=== PATIENT | female | born 1980 | race Caucasian/White ===

== ENCOUNTER 2017-04-01 11:21 | Inpatient (IN) | payer OTHER ==
[2017-04-01] MEDS ORDERED: MORPHINE SULFATE INJ 2 MG INJ IVP PRN (13:59)
[2017-04-01] MEDS ORDERED: PEPCID 20 MG IV PREMIX* 20 MG/50 ML BAG IV PRN (13:59)
[2017-04-01] MEDS ORDERED: NS 1000 ML 1,000 ML IV SCH (14:00)
[2017-04-01 14:53] LABS: BASOPHILS % (AUTO) 0.6 % (0.2-1.0); EOSINOPHILS # (AUTO) 0.1 x10^3/uL (0.0-0.2); EOSINOPHILS % (AUTO) 1.4 % (0.9-2.9); HEMATOCRIT 36.8 % (36.0-47.0); HEMOGLOBIN 12.6 g/dL (12.0-16.0); LYMPHOCYTES # (AUTO) 1.6 X10^3/uL (1.3-2.9); LYMPHOCYTES % (AUTO) 37.8 % (21.0-51.0); MEAN CORPUSCULAR HEMOGLOBIN 28.4 pg (27.0-34.0); MEAN CORPUSCULAR HGB CONC 34.2 g/dL (33.0-35.0); MEAN PLATELET VOLUME 7.9 fL (7.4-11.0); MONOCYTES # (AUTO) 0.4 x10^3/uL (0.3-0.8); MONOCYTES % (AUTO) 9.4 % (0.0-13.0); NEUTROPHILS # (AUTO) 2.2 x10^3/uL (2.2-4.8); NEUTROPHILS % (AUTO) 50.8 % (42.0-75.0); PLATELET COUNT 218 X10^3/uL (150.0-450.0); RED BLOOD COUNT 4.43 X10^6/uL (3.5-5.4); RED CELL DISTRIBUTION WIDTH 14.8 % (11.6-16.5); WHITE BLOOD COUNT 4.3 X10^3/uL (3.6-10.0)
[2017-04-01 15:07] LABS: ALANINE AMINOTRANSFERASE 17 Units/L (12-78); ALBUMIN 2.8 g/dL (3.4-5.0); ALKALINE PHOSPHATASE 83 Units/L (46-116); ASPARTATE AMINO TRANSFERASE 18 Units/L (15-37); BLOOD UREA NITROGEN 7 mg/dL (7-18); CALCIUM 8.5 mg/dL (8.5-10.1); CARBON DIOXIDE 21.3 mmol/L (21-32); CHLORIDE 105 mmol/L (98-107); COR CA(FOR HYPOALB) 9.5 mg/dL (8.5-10.1); COR NA(FOR HYPERGLY) 141 mmol/L (136-145); CREATININE 0.51 mg/dL (0.55-1.02); SODIUM 140 mmol/L (136-145); TOTAL PROTEIN 6.9 g/dL (6.4-8.2); eGFR BLACK RACES > 60 (>60); eGFR NON BLACK RACES > 60 (>60)
[2017-04-01 15:50] VITALS: BMI 29.8
[2017-04-01] MEDS: NS + KCL 40 MEQ/L 1,000 ML IV SCH (15:50)
--- NOTE | 2017-04-01 16:49 | RAD ---
Examination: Abdomen with PA chest History: Abdominal pain nausea and vomiting PA chest: Normal heart size with clear lungs. No pleural fluid or pneumoperitoneum. Abdomen: Supine and erect views demonstrate moderate gaseous distention of segments of jejunum and co viral. Differential air-fluid levels are observed. There is no evidence for mass or pathologic calcific ation. Jejunal distention measures as much as 4.6 cm in diameter. Impression: Although the findings may represent a reflex ileus, the significant small bowel distentio n is concerning for early or partial small bowel obstruction. Correlate clinically with follow-up lora ging. Reported By:
[2017-04-01 17:29] LABS: BILIRUBIN,URINE NEGATIVE (NEGATIVE); BLOOD/HEMOGLOBIN,URINE 1+ (NEGATIVE); GLUCOSE, URINE NEGATIVE (NEGATIVE); KETONES,URINE 2+ (NEGATIVE); LEUKOCYTE ESTERASE ,URINE 1+ (NEGATIVE); NITRITES,URINE NEGATIVE (NEGATIVE); PH,URINE 6.5 (5.0 - 8.0); PROTEIN,URINE 1+ (NEGATIVE); UROBILINOGEN,URINE NORMAL (NORMAL)
[2017-04-01 17:39] LABS: APPEARANCE,URINE HAZY (CLEAR); BACTERIA,URINE TRACE /HPF (NEGATIVE); COLOR,URINE YELLOW (YELLOW); SQUAMOUS EPITHELIAL CELL,UR RARE /HPF (NEGATIVE)
[2017-04-01] MEDS: TYLENOL 325 MG TAB PO PRN (20:16)
--- NOTE | 2017-04-01 21:17 | DR.H&P ---
H&P - History & Physical for Day of: H&P Date: 04/01/17 - Chief Complaint Chief Complaint: ABd pain with nausea/vomiting, diarrhea. Weakness and feeling like going to pass out. - Allergies Allergies/Adverse Reactions: Allergies Allergy/AdvReac Type Severity Reaction Status Date / Time No Known Drug Allergies Allergy Verified 04/01/17 13:59 [NKDA] - History of Present Illness History of Present Illness: The patient is a 37yo WF who presented to [facility] with complaint of N/V/D since . States she feels week and like she is going to pass out if stands suddenly. states he has had to catch her 3 times. Did present to [facility] and was told she was dehydrated. States they gave her 4 liters of fluid and nausea med IV and was discharged home. States she has been taking Zofran but unable to keep anything down including meds. States she has not been able to take her heart meds as well. - Past Medical History Past Medical History: Diabetes, Migraines, Hypertension Additional Medical History: Tachycardia, Low back pain - Past Surgical History Surgical History: Appendectomy, Cholecystectomy, Hysterectomy, Other - Family History Family Medical History: Diabetes Mellitus, Cancer, Coronary Artery Disease, Heart Failure, Hypertension - Social History Does patient currently use any type of tobacco product: No Have you used tobacco products in the last 12 months: No Type of Tobacco Use: None Does any household member use tobacco: Yes Alcohol Use: None Drug Use: None - Medications Home Medications: Cyclobenzaprine HCl 0.5 - 1 tab PO TID PRN 04/01/17 [History Confirmed 04/01/17] Duloxetine HCl [CYMBALTA 60 MG *] 1 cap PO DAILY 04/01/17 [History Confirmed ] Estradiol [Estrace] 2 mg PO DAILY 04/01/17 [History Confirmed 04/01/17] Gabapentin 800 mg PO TID PRN 04/01/17 [History Confirmed 04/01/17] Glimepiride 2 tabs PO BID 04/01/17 [History Confirmed 04/01/17] Insulin Lispro [Humalog Lopez Kwikpen] 1 unit SC .PERPROTOCOL 04/01/17 [ History Confirmed 04/01/17] Lisinopril 20 mg PO DAILY 04/01/17 [History Confirmed 04/01/17] Loratadine [Claritin] 10 mg PO DAILY 04/01/17 [History Confirmed 04/01/17] Metformin HCl 1.5 tabs PO BID 04/01/17 [History Confirmed 04/01/17] Metoprolol Tartrate 25 mg PO BID 04/01/17 [History Confirmed 04/01/17] Misc Home Med [Patient's Home Medication] 1 spray ENOSTRIL Q6H PRN 04/01/17 [ History Confirmed 04/01/17] Misc Home Med [Patient's Home Medication] 50 units SC HS 04/01/17 [History Confirmed 04/01/17] Misc Home Med [Patient's Home Medication] 80 units SC DAILY 04/01/17 [History Confirmed 04/01/17] Nortriptyline HCl 25 mg PO HS 04/01/17 [History Confirmed 04/01/17] Ondansetron HCl 4 mg PO Q4H PRN 04/01/17 [History Confirmed 04/01/17] Pioglitazone HCl [ACTOS 45 MG *] 45 mg PO DAILY 04/01/17 [History Confirmed ] Ropinirole HCl [REQUIP 1 MG *] 1 tab PO HS 04/01/17 [History Confirmed 04/01/17] Topiramate [Topamax] 50 mg PO BID 04/01/17 [History Confirmed 04/01/17] - Review of Systems Constitutional: See HPI, Weakness, Malaise Eyes: No Symptoms Reported ENT: Nose Congestion, Throat Pain Respiratory: No Symptoms Reported Cardiovascular: Palpitations, Light Headedness Gastrointestinal: Nausea, Vomiting, Abdominal Pain, Diarrhea Genitourinary: No Symptoms Reported Musculoskeletal: No Symptoms Reported Skin: No Symptoms Reported Neurological: No Symptoms Reported - Physical Exam Vital Signs: Temperature 98.5 F Pulse Rate [Right Brachial] 97 Respiratory Rate 16 Blood Pressure [Right Arm] 118/77 O2 Sat by Pulse Oximetry 97 Oriented: Normal Eyes: Normal Ear: Normal Nose: Normal Throat: Red Respiratory: Clear Throughout Cardiovascular: Tachycardia : Normal Auscultation: Bowel Sounds: Normal Palpation: Normal Tenderness: Epigastric Skin: Normal Musculoskeletal: Back:Lumbar, Tender Psychiatric: Normal Mood Description: Calm Affect: Normal Speech Pattern: Clear - Assessment/Plan (1) Ileus Status: Acute Plan: NPO (2) Nausea & vomiting Qualifiers: Vomiting Intractability: intractable Status: Acute Plan: IV Phenergan, Zofran (3) Diarrhea Status: Acute Plan: Stool culture (4) Diabetes mellitus Qualifiers: Diabetes mellitus type: type 2 Diabetes mellitus complication status: without complication Status: Acute Plan: Monitor BS (5) Tachycardia Status: Acute Plan: Monitor VS (6) Near syncope Status: Acute Plan: CBC, CMP, IV Hydration
[2017-04-01] MEDS ORDERED: FLEXERIL TAB 10 MG PO PRN (21:24)
[2017-04-01] MEDS: LOPRESSOR TAB 25 MG PO SCH (22:26)
[2017-04-02] MEDS: NS + KCL 40 MEQ/L 1,000 ML IV SCH ×2 (04:20→19:19)
[2017-04-02 06:36] LABS: ALANINE AMINOTRANSFERASE 16 Units/L (12-78); ALBUMIN 2.5 g/dL (3.4-5.0); ALKALINE PHOSPHATASE 75 Units/L (46-116); ASPARTATE AMINO TRANSFERASE 16 Units/L (15-37); BLOOD UREA NITROGEN 6 mg/dL (7-18); CALCIUM 7.7 mg/dL (8.5-10.1); CARBON DIOXIDE 19.9 mmol/L (21-32); CHLORIDE 107 mmol/L (98-107); COR CA(FOR HYPOALB) 8.9 mg/dL (8.5-10.1); COR NA(FOR HYPERGLY) 140 mmol/L (136-145); CREATININE 0.51 mg/dL (0.55-1.02); SODIUM 139 mmol/L (136-145); TOTAL PROTEIN 6.2 g/dL (6.4-8.2); eGFR BLACK RACES > 60 (>60); eGFR NON BLACK RACES > 60 (>60)
[2017-04-02 06:38] LABS: BASOPHILS % (AUTO) 0.5 % (0.2-1.0); EOSINOPHILS # (AUTO) 0.1 x10^3/uL (0.0-0.2); EOSINOPHILS % (AUTO) 1.6 % (0.9-2.9); HEMATOCRIT 34.6 % (36.0-47.0); LYMPHOCYTES # (AUTO) 1.4 X10^3/uL (1.3-2.9); MEAN CORPUSCULAR HEMOGLOBIN 28.8 pg (27.0-34.0); MEAN CORPUSCULAR HGB CONC 34.5 g/dL (33.0-35.0); MEAN CORPUSCULAR VOLUME 83.3 fL (80.0-100.0); MEAN PLATELET VOLUME 7.8 fL (7.4-11.0); MONOCYTES # (AUTO) 0.4 x10^3/uL (0.3-0.8); MONOCYTES % (AUTO) 10.6 % (0.0-13.0); NEUTROPHILS # (AUTO) 1.9 x10^3/uL (2.2-4.8); NEUTROPHILS % (AUTO) 51.3 % (42.0-75.0); PLATELET COUNT 195 X10^3/uL (150.0-450.0); RED BLOOD COUNT 4.16 X10^6/uL (3.5-5.4); RED CELL DISTRIBUTION WIDTH 14.6 % (11.6-16.5); WHITE BLOOD COUNT 3.8 X10^3/uL (3.6-10.0)
[2017-04-02] MEDS ORDERED: PATIENT'S HOME MEDICATION (Estradiol [Estrace] 2 MG) PO SCH (09:00)
[2017-04-02] MEDS: ESTRACE PO SCH (09:27)
[2017-04-02] MEDS: CYMBALTA PO SCH (09:27)
[2017-04-02] MEDS: LOPRESSOR TAB 25 MG PO SCH ×2 (09:27→21:06)
[2017-04-02] MEDS ORDERED: ZITHROMAX INJ 500 MG VIAL 500 MG in NS 250 ML IV 250 ML IV NR (11:27)
[2017-04-02] MEDS: PEPCID 20 MG IV PREMIX* 20 MG/50 ML BAG IV SCH ×2 (12:02→21:12)
[2017-04-02] MEDS: ZOFRAN INJ 4 MG VIAL IVP PRN (12:10)
--- NOTE | 2017-04-02 13:52 | CT ---
CT OF THE ABDOMEN AND PELVIS WITHOUT CONTRAST HISTORY: Small-bowel obstruction Comparison: Plain film 1 day prior Technique: Multiple axial images of the abdomen and pelvis were obtained from the lung bases to the p ubic symphysis without the administration of IV contrast. Oral contrast was administered. Dose reduc tion techniques including Automated Exposure Control (AEC) and adjustment of mA and kV were utlized. Findings: The heart is normal in size. There is no pericardial effusion. Lung bases are clear without focal con solidation, pleural effusion or pneumothorax. The sensitivity for focal lesion detection within the solid abdominal viscera is diminished without t he use of IV contrast. Liver and spleen are normal in size, and contour. Hepatic steatosis without focal lesion. No ductal d ilitation. Gallbladder absent. The pancreas is unremarkable. Adrenal glands are normal. Kidneys are n ormal in contour without hydronephrosis or nephrolithiasis. No bowel obstruction. Oral contrast is seen within the colon. Multiple surgical changes in the region of terminal ileum and ileocecal valve. Correlate with surgical history and possible appendectomy. Th ere is some mild thickening and inflammation in the region of the terminal ileum and cecum with shott y right lower quadrant and mesenteric lymph nodes. No free fluid or fluid collections. The bladder is normal in appearance. Uterus and ovaries not well seen. No free fluid or abnormal pelv ic lymph nodes. No aggressive osseous lesions. IMPRESSION: 1. No bowel obstruction. 2. Inflammatory changes involving the cecum and terminal ileum. Correlate with symptoms. Findings may represent inflammatory bowel disease. Adjacent surgical changes are nonspecific and may represent ap pendectomy. Correlate with patient's surgical history. 3. Hepatic steatosis. Reported By:
[2017-04-02 17:00] LABS: CRYPTOSPORIDIUM PARVUM ANTIGEN NEGATIVE (NEGATIVE); GIARDIA LAMBLIA ANTIGEN NEGATIVE (NEGATIVE); STOOL FOR WBC POSITIVE (NEGATIVE)
[2017-04-02] MEDS: PHENERGAN INJ 25 MG IVP PRN (19:26)
[2017-04-02] MEDS: REQUIP PO SCH (21:06)
[2017-04-03 04:46] LABS: BASOPHILS % (AUTO) 0.7 % (0.2-1.0); EOSINOPHILS # (AUTO) 0.1 x10^3/uL (0.0-0.2); EOSINOPHILS % (AUTO) 1.6 % (0.9-2.9); HEMATOCRIT 33.8 % (36.0-47.0); HEMOGLOBIN 11.7 g/dL (12.0-16.0); LYMPHOCYTES # (AUTO) 1.4 X10^3/uL (1.3-2.9); LYMPHOCYTES % (AUTO) 37.1 % (21.0-51.0); MEAN CORPUSCULAR HEMOGLOBIN 28.6 pg (27.0-34.0); MEAN CORPUSCULAR HGB CONC 34.6 g/dL (33.0-35.0); MEAN CORPUSCULAR VOLUME 82.7 fL (80.0-100.0); MEAN PLATELET VOLUME 7.6 fL (7.4-11.0); MONOCYTES # (AUTO) 0.4 x10^3/uL (0.3-0.8); NEUTROPHILS % (AUTO) 50.6 % (42.0-75.0); PLATELET COUNT 200 X10^3/uL (150.0-450.0); RED BLOOD COUNT 4.08 X10^6/uL (3.5-5.4); RED CELL DISTRIBUTION WIDTH 14.8 % (11.6-16.5); WHITE BLOOD COUNT 3.9 X10^3/uL (3.6-10.0)
[2017-04-03 05:04] LABS: ALANINE AMINOTRANSFERASE 15 Units/L (12-78); ALBUMIN 2.6 g/dL (3.4-5.0); ALKALINE PHOSPHATASE 78 Units/L (46-116); ASPARTATE AMINO TRANSFERASE 14 Units/L (15-37); BLOOD UREA NITROGEN 5 mg/dL (7-18); CALCIUM 7.8 mg/dL (8.5-10.1); CARBON DIOXIDE 19.6 mmol/L (21-32); CHLORIDE 107 mmol/L (98-107); COR CA(FOR HYPOALB) 8.9 mg/dL (8.5-10.1); COR NA(FOR HYPERGLY) 140 mmol/L (136-145); CREATININE 0.42 mg/dL (0.55-1.02); SODIUM 138 mmol/L (136-145); TOTAL PROTEIN 6.3 g/dL (6.4-8.2); eGFR BLACK RACES > 60 (>60); eGFR NON BLACK RACES > 60 (>60)
[2017-04-03] MEDS: HumuLIN R SUBCUT PRN ×4 (06:04→21:14)
[2017-04-03] MEDS: NS + KCL 40 MEQ/L 1,000 ML IV SCH ×2 (07:00→21:15)
[2017-04-03] MEDS ORDERED: ZITHROMAX INJ 500 MG VIAL 250 MG in NS 250 ML IV 250 ML IV SCH (09:00)
[2017-04-03] MEDS ORDERED: ZITHROMAX (ADDVANTAGE) 500 MG/250 ML IV.SOLN. IV SCH (09:00)
[2017-04-03] MEDS: PEPCID 20 MG IV PREMIX* 20 MG/50 ML BAG IV SCH ×2 (09:46→21:15)
[2017-04-03] MEDS: LOPRESSOR TAB 25 MG PO SCH ×2 (09:46→21:15)
[2017-04-03] MEDS: ESTRACE PO SCH (09:47)
[2017-04-03] MEDS: CYMBALTA PO SCH (09:50)
[2017-04-03] MEDS: SNACK - Diabetic Appropriate PO SCH ×2 (09:52→21:18)
[2017-04-03] MEDS: FLAGYL IV PREMIX 500 MG BAG 500 MG/100 ML BAG IV SCH ×2 (16:56→21:15)
[2017-04-03] MEDS: TYLENOL 325 MG TAB PO PRN (17:05)
[2017-04-03] MEDS: CIPRO IV 400 MG PREMIX* 400 MG/200 ML IV.SOLN. IV SCH ×2 (18:45→21:55)
[2017-04-03] MEDS: REQUIP PO SCH (21:15)
[2017-04-03] MEDS: PHENERGAN INJ 25 MG IVP PRN (22:25)
[2017-04-04] MEDS: FLAGYL IV PREMIX 500 MG BAG 500 MG/100 ML BAG IV SCH (02:23)
[2017-04-04] MEDS: HumuLIN R SUBCUT PRN ×3 (05:37→21:30)
[2017-04-04 06:04] LABS: ALANINE AMINOTRANSFERASE 17 Units/L (12-78); ALBUMIN 2.6 g/dL (3.4-5.0); ALKALINE PHOSPHATASE 77 Units/L (46-116); ASPARTATE AMINO TRANSFERASE 14 Units/L (15-37); BLOOD UREA NITROGEN 5 mg/dL (7-18); CALCIUM 8.2 mg/dL (8.5-10.1); CARBON DIOXIDE 20.8 mmol/L (21-32); CHLORIDE 109 mmol/L (98-107); COR CA(FOR HYPOALB) 9.3 mg/dL (8.5-10.1); COR NA(FOR HYPERGLY) 143 mmol/L (136-145); CREATININE 0.42 mg/dL (0.55-1.02); SODIUM 140 mmol/L (136-145); TOTAL PROTEIN 6.1 g/dL (6.4-8.2); eGFR BLACK RACES > 60 (>60); eGFR NON BLACK RACES > 60 (>60)
[2017-04-04 06:13] LABS: BASOPHILS % (AUTO) 0.7 % (0.2-1.0); EOSINOPHILS # (AUTO) 0.1 x10^3/uL (0.0-0.2); EOSINOPHILS % (AUTO) 1.7 % (0.9-2.9); HEMATOCRIT 34.2 % (36.0-47.0); HEMOGLOBIN 11.9 g/dL (12.0-16.0); LYMPHOCYTES # (AUTO) 1.6 X10^3/uL (1.3-2.9); LYMPHOCYTES % (AUTO) 40.6 % (21.0-51.0); MEAN CORPUSCULAR HEMOGLOBIN 28.6 pg (27.0-34.0); MEAN CORPUSCULAR HGB CONC 34.7 g/dL (33.0-35.0); MEAN CORPUSCULAR VOLUME 82.4 fL (80.0-100.0); MEAN PLATELET VOLUME 7.8 fL (7.4-11.0); MONOCYTES # (AUTO) 0.3 x10^3/uL (0.3-0.8); MONOCYTES % (AUTO) 8.7 % (0.0-13.0); NEUTROPHILS # (AUTO) 1.9 x10^3/uL (2.2-4.8); NEUTROPHILS % (AUTO) 48.3 % (42.0-75.0); PLATELET COUNT 214 X10^3/uL (150.0-450.0); RED BLOOD COUNT 4.15 X10^6/uL (3.5-5.4); RED CELL DISTRIBUTION WIDTH 14.9 % (11.6-16.5); WHITE BLOOD COUNT 3.8 X10^3/uL (3.6-10.0)
[2017-04-04] MEDS: PEPCID 20 MG IV PREMIX* 20 MG/50 ML BAG IV SCH ×2 (09:38→21:29)
[2017-04-04] MEDS: ESTRACE PO SCH (09:38)
[2017-04-04] MEDS: LOPRESSOR TAB 25 MG PO SCH ×2 (09:38→21:29)
[2017-04-04] MEDS: ZOFRAN INJ 4 MG VIAL IVP PRN (09:39)
[2017-04-04] MEDS: CYMBALTA PO SCH (09:48)
[2017-04-04] MEDS: CIPRO IV 400 MG PREMIX* 400 MG/200 ML IV.SOLN. IV SCH ×2 (16:03→21:29)
[2017-04-04] MEDS: NS + KCL 40 MEQ/L 1,000 ML IV SCH ×2 (16:05→21:35)
[2017-04-04] MEDS: REQUIP PO SCH (21:29)
[2017-04-04] MEDS: SNACK - Diabetic Appropriate PO SCH (21:29)
[2017-04-04] MEDS: PHENERGAN INJ 25 MG IVP PRN (23:03)
[2017-04-05 05:26] LABS: ALANINE AMINOTRANSFERASE 15 Units/L (12-78); ALBUMIN 2.7 g/dL (3.4-5.0); ALKALINE PHOSPHATASE 75 Units/L (46-116); ASPARTATE AMINO TRANSFERASE 13 Units/L (15-37); BLOOD UREA NITROGEN 3 mg/dL (7-18); CARBON DIOXIDE 22.9 mmol/L (21-32); CHLORIDE 108 mmol/L (98-107); COR NA(FOR HYPERGLY) 144 mmol/L (136-145); CREATININE 0.45 mg/dL (0.55-1.02); SODIUM 142 mmol/L (136-145); TOTAL PROTEIN 6.1 g/dL (6.4-8.2); eGFR BLACK RACES > 60 (>60); eGFR NON BLACK RACES > 60 (>60)
[2017-04-05 05:36] LABS: BASOPHILS % (AUTO) 0.7 % (0.2-1.0); EOSINOPHILS # (AUTO) 0.1 x10^3/uL (0.0-0.2); EOSINOPHILS % (AUTO) 2.1 % (0.9-2.9); HEMATOCRIT 33.8 % (36.0-47.0); HEMOGLOBIN 11.9 g/dL (12.0-16.0); LYMPHOCYTES # (AUTO) 1.8 X10^3/uL (1.3-2.9); LYMPHOCYTES % (AUTO) 43.6 % (21.0-51.0); MEAN CORPUSCULAR HEMOGLOBIN 28.9 pg (27.0-34.0); MEAN CORPUSCULAR HGB CONC 35.2 g/dL (33.0-35.0); MEAN CORPUSCULAR VOLUME 82.3 fL (80.0-100.0); MEAN PLATELET VOLUME 7.8 fL (7.4-11.0); MONOCYTES # (AUTO) 0.3 x10^3/uL (0.3-0.8); MONOCYTES % (AUTO) 8.3 % (0.0-13.0); NEUTROPHILS # (AUTO) 1.9 x10^3/uL (2.2-4.8); NEUTROPHILS % (AUTO) 45.3 % (42.0-75.0); PLATELET COUNT 235 X10^3/uL (150.0-450.0); RED CELL DISTRIBUTION WIDTH 14.7 % (11.6-16.5); WHITE BLOOD COUNT 4.2 X10^3/uL (3.6-10.0)
[2017-04-05] MEDS: HumuLIN R SUBCUT PRN (05:48)
[2017-04-05 06:04] LABS: CALCIUM 8.1 mg/dL (8.5-10.1); COR CA(FOR HYPOALB) 9.1 mg/dL (8.5-10.1)
[2017-04-05 07:24] LABS: PLATELET MORPHOLOGY COMMENT NORMAL (NORMAL)
[2017-04-05] MEDS: ESTRACE PO SCH (08:45)
[2017-04-05] MEDS: PEPCID 20 MG IV PREMIX* 20 MG/50 ML BAG IV SCH (08:45)
[2017-04-05] MEDS: CIPRO IV 400 MG PREMIX* 400 MG/200 ML IV.SOLN. IV SCH (08:45)
[2017-04-05] MEDS: LOPRESSOR TAB 25 MG PO SCH (08:45)
[2017-04-05] MEDS: CYMBALTA PO SCH (08:45)
[2017-04-05 11:01] VITALS: BP 134/82
== END 2017-04-05 10:55 | disposition home or self-care (01) | DRG 389 ==
LOC: UNDOADMOB 11:21 → ICU 11:21 → OBSVTOIN 12:24 → MED/SURG 04-02 17:42
PROVIDERS: ADMIT Internal Medicine; ATTEND Internal Medicine
DX: K56.7 Ileus, unspecified (principal); A02.8 Other specified salmonella infections; R55 Syncope and collapse; R10.84 Generalized abdominal pain; E87.6 Hypokalemia; R11.2 Nausea with vomiting, unspecified; R19.7 Diarrhea, unspecified; R53.1 Weakness; E11.65 Type 2 diabetes mellitus with hyperglycemia; R00.0 Tachycardia, unspecified; Z79.4 Long term (current) use of insulin
CPT/HCPCS: 36415; 74022; 74176; 80053; 81001; 82009; 82270; 83630; 85025; 87040; 87045; 87077; 87186; 87328; 87329; 87336; 87427; 87899; A4216; A4222; S0028; S0030; J0456; J0744; J1815; J2405; J2550

== ENCOUNTER 2017-06-11 15:43 | Observation (INO) | payer OTHER ==
[2017-06-11] MEDS ORDERED: AMBIEN PO PRN (17:35)
[2017-06-11] MEDS ORDERED: ZOFRAN TAB 4 MG SL PRN (17:35)
--- NOTE | 2017-06-11 17:45 | DR.H&P ---
H&P - History & Physical for Day of: H&P Date: 06/11/17 - Chief Complaint Chief Complaint: Low back pain radiating down legs - Allergies Allergies/Adverse Reactions: Allergies Allergy/AdvReac Type Severity Reaction Status Date / Time No Known Drug Allergies Allergy Verified 04/01/17 13:59 [NKDA] - History of Present Illness History of Present Illness: The patient is a 37-year-old white female who presents to the clinic with complaint of intractable low back pain radiating down both legs. States the pain started on Saturday. States she can't lift her legs due to the pain. States pain is worse to the left back. Does radiate down to her knees.Did go to the emergency room in [place]. States that she was given a shot of pain medicine and then sent home with 1 [place]. Patient states that she has tried taking Zanaflex and is not helping. States she is unable to get comfortable. States she can't be still secondary to the pain. Blood sugar is noted to be elevated in the 330s. We will admit for pain control. - Past Medical History Past Medical History: Diabetes, Migraines, Hypertension Additional Medical History: Tachycardia, Low back pain - Past Surgical History Surgical History: Appendectomy, Cholecystectomy, Hysterectomy, Other - Family History Family Medical History: Diabetes Mellitus, Cancer, Coronary Artery Disease, Heart Failure, Hypertension - Social History Does patient currently use any type of tobacco product: No Have you used tobacco products in the last 12 months: No Type of Tobacco Use: None Does any household member use tobacco: No Alcohol Use: None Drug Use: None - Review of Systems Constitutional: No Symptoms Reported Eyes: No Symptoms Reported ENT: No Symptoms Reported Respiratory: No Symptoms Reported Cardiovascular: No Symptoms Reported Gastrointestinal: No Symptoms Reported Genitourinary: No Symptoms Reported Musculoskeletal: See HPI, Back Pain, Leg Pain Skin: No Symptoms Reported Neurological: No Symptoms Reported - Physical Exam Vital Signs: Blood Pressure [Right Arm] 134/82 Blood Pressure 134/82 Oriented: Normal Eyes: Normal Ear: Normal Nose: Normal Throat: Normal Respiratory: Clear Throughout Cardiovascular: Normal : Normal Auscultation: Bowel Sounds: Normal Palpation: Normal Tenderness: Normal Skin: Normal Musculoskeletal: Back:Lumbar, Tender Psychiatric: Normal Mood Description: Angry, Anxious Affect: Anxious Speech Pattern: Clear - Assessment/Plan (1) Low back pain Qualifiers: Chronicity: acute Back pain laterality: bilateral Sciatica presence: with sciatica Sciatica laterality: bilateral sciatica Qualified Code(s): M54.42 - Lumbago with sciatica, left side; M54.41 - Lumbago with sciatica, right side; M54.41 - Lumbago with sciatica, right side Status: Acute Plan: MRI Lumbar, IV Toradol, IV Demerol (2) Lumbar radiculopathy Status: Acute Plan: MRI Lumbar, IV Toradol, IV Demerol (3) Diabetes mellitus Qualifiers: Diabetes mellitus type: type 2 Diabetes mellitus complication status: without complication Status: Acute Plan: MONITOR BLOOD GLUCOSE AND SSRI COVERAGE
[2017-06-11 19:10] LABS: BASOPHILS # (AUTO) 0.1 X10^3/uL (0.0-0.1); BASOPHILS % (AUTO) 1.2 % (0.2-1.0); EOSINOPHILS % (AUTO) 0.5 % (0.9-2.9); HEMATOCRIT 41.4 % (36.0-47.0); HEMOGLOBIN 14.2 g/dL (12.0-16.0); LYMPHOCYTES # (AUTO) 2.5 X10^3/uL (1.3-2.9); LYMPHOCYTES % (AUTO) 36.3 % (21.0-51.0); MEAN CORPUSCULAR HGB CONC 34.3 g/dL (33.0-35.0); MEAN CORPUSCULAR VOLUME 84.5 fL (80.0-100.0); MONOCYTES # (AUTO) 0.3 x10^3/uL (0.3-0.8); MONOCYTES % (AUTO) 4.2 % (0.0-13.0); NEUTROPHILS % (AUTO) 57.8 % (42.0-75.0); PLATELET COUNT 247 X10^3/uL (150.0-450.0); RED CELL DISTRIBUTION WIDTH 13.8 % (11.6-16.5)
[2017-06-11 19:23] LABS: ALANINE AMINOTRANSFERASE 24 Units/L (12-78); ALBUMIN 3.2 g/dL (3.4-5.0); ALKALINE PHOSPHATASE 96 Units/L (46-116); ASPARTATE AMINO TRANSFERASE 6 Units/L (15-37); BLOOD UREA NITROGEN 14 mg/dL (7-18); CALCIUM 8.5 mg/dL (8.5-10.1); CARBON DIOXIDE 26.8 mmol/L (21-32); CHLORIDE 99 mmol/L (98-107); COR CA(FOR HYPOALB) 9.1 mg/dL (8.5-10.1); COR NA(FOR HYPERGLY) 139 mmol/L (136-145); CREATININE 0.82 mg/dL (0.55-1.02); SODIUM 134 mmol/L (136-145); TOTAL PROTEIN 7.3 g/dL (6.4-8.2); eGFR BLACK RACES > 60 (>60); eGFR NON BLACK RACES > 60 (>60)
[2017-06-11 20:04] VITALS: BMI 29.2
[2017-06-11] MEDS: NS 1000 ML 1,000 ML IV SCH (20:28)
[2017-06-11] MEDS: TORADOL 30 MG VIAL IVP SCH (20:28)
[2017-06-11] MEDS: DEMEROL INJ IVP PRN (21:37)
[2017-06-11] MEDS: HumuLIN R SUBCUT PRN (21:46)
[2017-06-12] MEDS: NORCO 5/325 MG TAB PO PRN ×3 (01:30→14:32)
[2017-06-12] MEDS: TORADOL 30 MG VIAL IVP SCH ×3 (01:30→12:55)
[2017-06-12] MEDS: DEMEROL INJ IVP PRN ×3 (03:52→16:57)
[2017-06-12 05:16] LABS: BILIRUBIN,URINE NEGATIVE (NEGATIVE); BLOOD/HEMOGLOBIN,URINE 1+ (NEGATIVE); GLUCOSE, URINE NEGATIVE (NEGATIVE); KETONES,URINE NEGATIVE (NEGATIVE); LEUKOCYTE ESTERASE ,URINE NEGATIVE (NEGATIVE); NITRITES,URINE NEGATIVE (NEGATIVE); PH,URINE 6.5 (5.0 - 8.0); PROTEIN,URINE NEGATIVE (NEGATIVE); UROBILINOGEN,URINE NORMAL (NORMAL)
[2017-06-12 05:43] LABS: APPEARANCE,URINE CLEAR (CLEAR); COLOR,URINE PALE YELLOW (YELLOW); RBC,URINE RARE /HPF (NEGATIVE); SQUAMOUS EPITHELIAL CELL,UR RARE /HPF (NEGATIVE)
[2017-06-12 05:44] LABS: BACTERIA,URINE NEGATIVE /HPF (NEGATIVE)
[2017-06-12] MEDS: HumuLIN R SUBCUT PRN ×4 (06:47→22:01)
[2017-06-12] MEDS: NS 1000 ML 1,000 ML IV SCH ×3 (06:47→21:13)
--- NOTE | 2017-06-12 13:39 | PCM.PROG ---
Progress Note - Progress Note for Day of Date: 06/12/17 - Subjective Subjective: patient is a 37-year-old white female who was a direct admit with intractable lumbar spine pain. Patient is scheduled for an M R I today. Patient is having some pain to the left flank. Reviewed labs and urinalysis collected on admission. Continue pain control and repeat a.m. labs. - Past Medical Family Social History Past Med/Fam/Surg Hx: No changes since H&P Allergies: Allergies No Known Drug Allergies [NKDA] Allergy (Verified 04/01/17 13:59) - Review of Systems ROS: No change since H&P - Vital Signs and I&O's Vital Signs: Temperature 97.5 F Pulse Rate [Left Brachial] 76 Respiratory Rate 18 Blood Pressure [Left Arm] 123/74 Blood Pressure [Right Arm] 134/82 Blood Pressure 134/82 O2 Sat by Pulse Oximetry 96 Intake and Output: Intake & Output 06/10/17 06/11/17 06/12/17 06/13/17 11:59 11:59 11:59 11:59 Intake Total 1302 Balance 1302 - Physical Exam Oriented: Normal Eyes: Normal Ear: Normal Nose: Normal Throat: Normal Respiratory: Normal Cardiovascular: Normal : Normal Auscultation: Bowel Sounds: Normal Tenderness: Normal Skin: Normal Musculoskeletal: Back:Thoracic, Back:Lumbar, Tender Psychiatric: Normal Mood Description: Angry, Anxious Affect: Anxious Speech Pattern: Clear, Appropriate - Laboratory and Diagnostics Result Diagrams: 06/11/17 19:00 06/11/17 19:00 Labs: Laboratory WBC 7.0 X10^3/uL (3.6-10.0) 06/11/17 19:00 RBC 4.90 X10^6/uL (3.5-5.4) 06/11/17 19:00 Hgb 14.2 g/dL (12.0-16.0) 06/11/17 19:00 Hct 41.4 % (36.0-47.0) 06/11/17 19:00 MCV 84.5 fL (80.0-100.0) 06/11/17 19:00 MCH 29.0 pg (27.0-34.0) 06/11/17 19:00 MCHC 34.3 g/dL (33.0-35.0) 06/11/17 19:00 RDW 13.8 % (11.6-16.5) 06/11/17 19:00 Plt Count 247 X10^3/uL (150.0-450.0) 06/11/17 19:00 MPV 9.0 fL (7.4-11.0) 06/11/17 19:00 Neut % 57.8 % (42.0-75.0) 06/11/17 19:00 Lymph % 36.3 % (21.0-51.0) 06/11/17 19:00 [place] % 4.2 % (0.0-13.0) 06/11/17 19:00 Eos % 0.5 % (0.9-2.9) L 06/11/17 19:00 Baso % 1.2 % (0.2-1.0) H 06/11/17 19:00 Neut # 4.0 x10^3/uL (2.2-4.8) 06/11/17 19:00 Lymph # 2.5 X10^3/uL (1.3-2.9) 06/11/17 19:00 [place] # 0.3 x10^3/uL (0.3-0.8) 06/11/17 19:00 Eos # 0.0 x10^3/uL (0.0-0.2) 06/11/17 19:00 Baso # 0.1 X10^3/uL (0.0-0.1) 06/11/17 19:00 Absolute Nucleated RBC 0.2 /100WBC 06/11/17 19:00 Sodium 134 mmol/L (136-145) L 06/11/17 19:00 Corrected Sodium 139 mmol/L (136-145) 06/11/17 19:00 Potassium 3.9 mmol/L (3.5-5.1) 06/11/17 19:00 Chloride 99 mmol/L (98-107) 06/11/17 19:00 Carbon Dioxide 26.8 mmol/L (21-32) 06/11/17 19:00 BUN 14 mg/dL (7-18) 06/11/17 19:00 Creatinine 0.82 mg/dL (0.55-1.02) 06/11/17 19:00 Est GFR (MDRD) Af Amer > 60 (>60) 06/11/17 19:00 Est GFR (MDRD) Non-Af > 60 (>60) 06/11/17 19:00 Glucose 315 mg/dL (65-99) H 06/11/17 19:00 POC Glucose (mg/dL) 262 mg/dL (65-99) H 06/12/17 11:34 Calcium 8.5 mg/dL (8.5-10.1) 06/11/17 19:00 Corrected Calcium 9.1 mg/dL (8.5-10.1) 06/11/17 19:00 Total Bilirubin 0.40 mg/dL (0.2-1.0) 06/11/17 19:00 AST 6 Units/L (15-37) L 06/11/17 19:00 ALT 24 Units/L (12-78) 06/11/17 19:00 Alkaline Phosphatase 96 Units/L (46-116) 06/11/17 19:00 Total Protein 7.3 g/dL (6.4-8.2) 06/11/17 19:00 Albumin 3.2 g/dL (3.4-5.0) L 06/11/17 19:00 Globulin 4.1 g/dL (2.5-4.5) 06/11/17 19:00 Albumin/Globulin Ratio 0.8 Ratio (1.1-2.1) L 06/11/17 19:00 Specimen Type Clean catch urine 06/12/17 04:36 Urine Color Pale yellow (YELLOW) 06/12/17 04:36 Urine Appearance Clear (CLEAR) 06/12/17 04:36 Urine pH 6.5 (5.0 - 8.0) 06/12/17 04:36 Ur Specific [place] 1.005 (1.000-1.030) 06/12/17 04:36 Urine Protein Negative (NEGATIVE) 06/12/17 04:36 Urine Glucose (UA) Negative (NEGATIVE) 06/12/17 04:36 Urine Ketones Negative (NEGATIVE) 06/12/17 04:36 Urine Occult Blood 1+ (NEGATIVE) 06/12/17 04:36 Urine Nitrite Negative (NEGATIVE) 06/12/17 04:36 Urine Bilirubin Negative (NEGATIVE) 06/12/17 04:36 Urine Urobilinogen Normal (NORMAL) 06/12/17 04:36 Ur Leukocyte Esterase Negative (NEGATIVE) 06/12/17 04:36 Urine RBC Rare /HPF (NEGATIVE) 06/12/17 04:36 Urine WBC None seen /HPF (NEGATIVE) 06/12/17 04:36 Ur Squamous Epith Cells Rare /HPF (NEGATIVE) 06/12/17 04:36 Urine Bacteria Negative /HPF (NEGATIVE) 06/12/17 04:36 Ur Culture Indicated? No/not indicated 06/12/17 04:36 - Plan (1) Lumbar radiculopathy Status: Acute Plan: MRI Lumbar, IV Toradol, IV Demerol (2) Hypertension Status: Acute (3) Left flank pain Status: Acute (4) Diabetes mellitus Status: Acute Qualifiers: Diabetes mellitus type: type 2 Diabetes mellitus complication status: without complication Plan: MONITOR BLOOD GLUCOSE AND SSRI COVERAGE
[2017-06-12] MEDS: LYRICA CAP 100 MG PO SCH ×2 (14:32→21:05)
[2017-06-12] MEDS ORDERED: GLUCOPHAGE ONE (16:51)
[2017-06-12] MEDS: GLUCOPHAGE PO SCH (16:57)
[2017-06-12] MEDS ORDERED: REQUIP PO SCH (21:00)
[2017-06-12] MEDS ORDERED: ELAVIL PO SCH (21:00)
[2017-06-12] MEDS: TOPAMAX PO SCH (21:06)
[2017-06-12] MEDS: AMARYL TAB 4 MG PO SCH (21:06)
[2017-06-12] MEDS: ZANAFLEX PO SCH (21:06)
[2017-06-12] MEDS: LOPRESSOR TAB 25 MG PO SCH (21:06)
[2017-06-13 05:17] LABS: BASOPHILS % (AUTO) 0.7 % (0.2-1.0); EOSINOPHILS # (AUTO) 0.1 x10^3/uL (0.0-0.2); EOSINOPHILS % (AUTO) 1.4 % (0.9-2.9); HEMATOCRIT 37.4 % (36.0-47.0); HEMOGLOBIN 12.7 g/dL (12.0-16.0); LYMPHOCYTES % (AUTO) 39.8 % (21.0-51.0); MEAN CORPUSCULAR HEMOGLOBIN 28.6 pg (27.0-34.0); MEAN PLATELET VOLUME 8.7 fL (7.4-11.0); MONOCYTES # (AUTO) 0.3 x10^3/uL (0.3-0.8); MONOCYTES % (AUTO) 6.2 % (0.0-13.0); NEUTROPHILS # (AUTO) 2.5 x10^3/uL (2.2-4.8); NEUTROPHILS % (AUTO) 51.9 % (42.0-75.0); PLATELET COUNT 193 X10^3/uL (150.0-450.0); RED BLOOD COUNT 4.45 X10^6/uL (3.5-5.4); RED CELL DISTRIBUTION WIDTH 13.8 % (11.6-16.5); WHITE BLOOD COUNT 4.9 X10^3/uL (3.6-10.0)
[2017-06-13 05:25] LABS: ALANINE AMINOTRANSFERASE 31 Units/L (12-78); ALBUMIN 2.4 g/dL (3.4-5.0); ALKALINE PHOSPHATASE 73 Units/L (46-116); ASPARTATE AMINO TRANSFERASE 24 Units/L (15-37); BLOOD UREA NITROGEN 9 mg/dL (7-18); CALCIUM 7.4 mg/dL (8.5-10.1); CARBON DIOXIDE 21.9 mmol/L (21-32); CHLORIDE 108 mmol/L (98-107); COR CA(FOR HYPOALB) 8.7 mg/dL (8.5-10.1); COR NA(FOR HYPERGLY) 143 mmol/L (136-145); CREATININE 0.53 mg/dL (0.55-1.02); SODIUM 140 mmol/L (136-145); TOTAL PROTEIN 5.7 g/dL (6.4-8.2); eGFR BLACK RACES > 60 (>60); eGFR NON BLACK RACES > 60 (>60)
[2017-06-13] MEDS ORDERED: GLUCOPHAGE ONE (06:01)
[2017-06-13] MEDS: LYRICA CAP 100 MG PO SCH ×2 (06:10→13:10)
[2017-06-13] MEDS: HumuLIN R SUBCUT PRN (06:10)
[2017-06-13] MEDS: GLUCOPHAGE PO SCH (06:10)
[2017-06-13] MEDS: DEMEROL INJ IVP PRN ×2 (06:29→11:01)
[2017-06-13] MEDS: NORCO 5/325 MG TAB PO PRN (07:22)
[2017-06-13] MEDS ORDERED: MILK OF MAGNESIA PO PRN (07:58)
[2017-06-13] MEDS ORDERED: COLACE CAP 100 MG PO PRN (07:58)
[2017-06-13] MEDS ORDERED: ZESTRIL TAB 20 MG ONE (08:10)
[2017-06-13] MEDS: TOPAMAX PO SCH (08:24)
[2017-06-13] MEDS: ZANAFLEX PO SCH (08:24)
[2017-06-13] MEDS: AMARYL TAB 4 MG PO SCH (08:24)
[2017-06-13] MEDS: LOPRESSOR TAB 25 MG PO SCH (08:24)
[2017-06-13] MEDS: NS 1000 ML 1,000 ML IV SCH (08:28)
[2017-06-13] MEDS ORDERED: ZESTRIL TAB 20 MG PO SCH (09:00)
[2017-06-13] MEDS ORDERED: CYMBALTA PO SCH (09:00)
[2017-06-13 16:49] VITALS: BP 126/78
== END 2017-06-13 16:25 | disposition home or self-care (01) ==
LOC: MED/SURG 15:43
PROVIDERS: ADMIT Internal Medicine; ATTEND Internal Medicine
DX: M54.5 Low back pain (principal); M54.42 Lumbago with sciatica, left side; M54.41 Lumbago with sciatica, right side; M54.16 Radiculopathy, lumbar region; E11.9 Type 2 diabetes mellitus without complications; I10 Essential (primary) hypertension; M79.1 Myalgia; G62.9 Polyneuropathy, unspecified; G25.81 Restless legs syndrome; R10.84 Generalized abdominal pain
CPT/HCPCS: 36415; 80053; 81001; 85025; A4216; A4222; G0378; J1815; J1885; J2175